=== PATIENT | female | born 1955 | race Caucasian/White ===

== ENCOUNTER 2024-07-02 15:50 | Emergency (ER) | payer MEDICARE ==
[~2024-07-02] VITALS: Ht 162.6 cm; Wt 88.9 kg
[2024-07-02 16:28] VITALS: PULSE 93; RESP 18; TEMP 98.5
[2024-07-02 16:47] LABS: BASOPHILS % 0.3 % (0.0-1.0); EOSINOPHILS % 0.2 % (0.0-6.0); HEMATOCRIT 37.8 % (34.2-44.1); HEMOGLOBIN 12.2 g/dL (12.0-16.0); LYMPHOCYTES # (AUTO) 1.4 (1.0-3.2); MEAN CORPUSCULAR HEMOGLOBIN 26.5 pg (28-32); MEAN CORPUSCULAR HGB CONC 32.3 g/dL (31-35); MONOCYTES # (AUTO) 0.6 (0.2-0.8); MONOCYTES % 6.2 % (4.4-11.3); NEUTROPHILS # (AUTO) 7.9 (2.1-6.9); NEUTROPHILS % 78.8 % (38.7-80.0); PLATELET COUNT 283 x10e3/uL (140-360); RED BLOOD COUNT 4.61 x10e6/uL (3.6-5.1); RED CELL DISTRIBUTION WIDTH 14.5 % (11.7-14.4); WHITE BLOOD COUNT 10.06 x10e3/uL (4.8-10.8)
[2024-07-02 17:01] LABS: ALBUMIN/GLOBULIN RATIO 0.9 (0.8-2.0); ANION GAP 15.3 mmol/L (8-16); BILIRUBIN,TOTAL 0.7 mg/dL (0.2-1.2); CALCIUM 9.8 mg/dL (8.4-10.2); CREATININE, SERUM 1.06 mg/dL (0.57-1.11); POTASSIUM 4.3 mmol/L (3.5-5.1); TOTAL PROTEIN 8.3 g/dL (6.5-8.1)
[2024-07-02] MEDS ORDERED: IOPAMIDOL 370 MG/ML 100 ML INFUS..BTL INJ ONE (17:37)
[2024-07-02] MEDS ORDERED: FLEET ENEMA133 ML PR (19:02)
[2024-07-02 20:19] VITALS: BP 145/78; PULSE 85; RESP 18; TEMP 98.1; O2SAT 98
== END 2024-07-02 19:20 | disposition home or self-care (01) ==
LOC: ER 16:23
DX: R10.30 Lower abdominal pain, unspecified (principal); K56.41 Fecal impaction; K76.0 Fatty (change of) liver, not elsewhere classified; Z85.41 Personal history of malignant neoplasm of cervix uteri; Z85.850 Personal history of malignant neoplasm of thyroid; Z85.118 Personal history of other malignant neoplasm of bronchus and lung
CPT/HCPCS: 36415; 74177; 80053; 83690; 85025; 99284; Q9967